=== PATIENT | male | born 1950 | race Caucasian/White ===

== ENCOUNTER 2025-02-19 05:29 | Observation (INO) ==
--- NOTE | 2025-02-02 08:32 | PAT Medication Instructions ---
Medication Instructions Date of Service February 02, 2025 Home Medications Medication Instructions Recorded rosuvastatin 5 mg tablet 5 mg PO DAILY #90 tabs 07/16/24 mecobalamin (vitamin B12) 1,000 mcg chewable tablet (B12 Active) 1,000 mcg PO 2XWK aspirin 81 mg tablet 162 mg PO QAM rosuvastatin 5 mg tablet 5 mg PO DAILY latanoprost 0.005 % eye drops 1 drp ophthalmic (eye) HS acetaminophen 500 mg tablet 500 - 1,000 mg PO BID PRN Pain brinzolamide 1 % eye drops,suspension 1 drp ophthalmic (eye) BID omega-3 fatty acids 1,000 mg capsule 1,000 mg PO QAM ASK your prescriber and surgeon aspirin 81 mg tablet 162 mg PO QAM STOP taking 2 weeks before surgery (or as soon as possible if surgery is within 2 weeks) omega-3 fatty acids 1,000 mg capsule 1,000 mg PO QAM DO NOT take the morning of surgery mecobalamin (vitamin B12) 1,000 mcg chewable tablet (B12 Active) 1,000 mcg PO 2X WK Take morning of surgery With a small sip of water, OTHERWISE NOTHING TO EAT OR DRINK AFTER MIDNIGHT: rosuvastatin 5 mg tablet 5 mg PO DAILY acetaminophen 500 mg tablet 500 - 1,000 mg PO BID PRN Pain (if needed) brinzolamide 1 % eye drops,suspension 1 drp ophthalmic (eye) BID Take evening before surgery latanoprost 0.005 % eye drops 1 drp ophthalmic (eye) HS acetaminophen 500 mg tablet 500 - 1,000 mg PO BID PRN Pain (if needed) brinzolamide 1 % eye drops,suspension 1 drp ophthalmic (eye) BID Other Notes If you have any questions please call us at [phone] or [phone] or [phone] or [phone]
--- NOTE | 2025-02-04 08:34 | Anesthesiology Consultation ---
Date of Service February 04, 2025 Assessment & Plan (1) Encounter for pre-operative examination: - pulmonology office visit 01/15/25 [place]: "...Multiple pulmonary nodules. Mixed groundglass and solid. Largest being groundglass nodule left upper lobe 8 mm. Approximately [id number] smoking history, quit at the age of 33...Given the stability of pulmonary nodules as well as autoimmune and fungal workup negative, I am going to repeat the CAT scan in probably 14-15 months. If the repeat CAT scan does not show any significant change then no further CAT scan of the chest unless patient complains of B symptoms...Exertional shortness of breath --> resolved...Complex sleep apnea...Patient requests that her be not informed regarding the pulmonary nodules..." - Outpatient joint assessment: Patient is currently scheduled for inpatient pathway. If re-evaluated and patient/surgeon requests outpatient pathway, patient is not advised candidate for outpatient joint program. Chart Review Chart Review: Acceptable Risk for Surgery and Patient seen in Pre Admission Testing Teaching & Discussion Pre-Anesthesia Teaching/Discussion Notes: Instructed NPO after midnight before surgery, except medications with 15 cc of water. Medication instructions provided according to the PAT guidelines. History Surgery Operation Date: 02/19/25 10:15 Proposed Procedures p Left Total Hip Arthroplasty - Marcin Akhtar MD Height/Weight Height: 6 ft 5 in Weight: 119.6 kg Allergies Allergy/AdvReac Type Severity Reaction Status Date / Time No Known Allergies Allergy Verified 02/01/25 15:27 Medications Home Medications Medication Instructions Recorded Confirmed Last Taken mecobalamin (vitamin B12) 1,000 1,000 mcg PO 2XWK 06/20/23 02/01/25 Unknown mcg chewable tablet (B12 Active) aspirin 81 mg tablet 162 mg PO QAM 07/16/24 02/01/25 Unknown rosuvastatin 5 mg tablet 5 mg PO DAILY #90 tabs 07/16/24 02/01/25 Unknown latanoprost 0.005 % eye drops 1 drp ophthalmic (eye) HS 10/15/24 02/01/25 Unknown acetaminophen 500 mg tablet 500 - 1,000 mg PO BID PRN Pain 02/01/25 02/01/25 Unknown brinzolamide 1 % eye 1 drp ophthalmic (eye) BID 02/01/25 02/01/25 Unknown drops,suspension omega-3 fatty acids 1,000 mg 1,000 mg PO QAM 02/01/25 02/01/25 Unknown capsule Past Medical History Medical History 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 Osteoarthritis Pancreatic mass per medical record - removed with Shabnam gutierrez in 2023 -> benign findings. Simple renal cyst monitoring Spondylosis Patient denies h/o stroke, seizures, heart attack, heart failure, DM, HTN, blood clots/DVTs or blood transfusions. Exercise / Class Metabolic Activity II 4-5 Yardwork/Stairs/Walk up hill (ambulates with cane, denies chest discomfort or shortness of breath with one flight of stairs) Past Family History Family History Grandfather (Maternal) Lung cancer Grandmother (Maternal) Alzheimer disease Dementia Mother Coronary heart disease Clotting disorder Breast cancer Lung cancer Father Myocardial infarction Other Cancer Colorectal cancer No family history of adverse response to anesthesia Denies family history of Ovarian cancer Prostate cancer Past Surgical History Surgical History (Updated 02/04/25 @ 08:42 by Nancy Johnson PA-C) H/O eye surgery (2008) growth removed from the left eyelid H/O umbilical hernia repair (2019) History of arthroscopy of right shoulder History of ERCP or EUS at [facility] with pancreatic mass biopsy (benign findings) Hx of colonoscopy Past Anesthesia History No Hx of Anesthesia Complications and No Family Hx of Anesthesia Complications History of PONV No Hx of PONV and No Hx of Motion Sickness Social History Smoking Status: Former smoker Do You Dip or Chew Tobacco: No Smoking End Date: 1982 Hx Alcohol Use: Yes Alcohol type: beer alcohol intake frequency: a few times a week Hx Substance Use: No substance use type: does not use Review of Systems Patient denies chest pain, shortness of breath, dyspnea on exertion, reflux, fever, chills, cough, wheezing, or palpitations. Physical Exam Vital Signs Vitals BP 138/85 P 85 TEMP 98.8 SP02 96% on RA RESP Physical Patient resting comfortably in chair in no acute distress, alert and oriented, responding appropriately throughout visit Mildly limited cervical extension range of motion without pain TMD 3.5 finger breadths Mallampati Score 2 Dentition: several implants, denies chipped or loose teeth, caps/crowns, or bridges Lungs: normal respiratory effort. Good air movement, clear throughout to auscultation, no adventitious breath sounds Cardiac: regular rate and rhythm, no murmurs noted Carotid arteries: negative bruit bilat Lab Results Anesthesia Preop Results Results Anesthesia Widget: WBC 6.73 K/ul (4.8-10.8) 02/04/25 Hgb 13.1 g/dl (14.0-18.0) L 02/04/25 Hct 40.1 % (42.0-52.0) L 02/04/25 Plt 193 K/uL (130-400) 02/04/25 Na 140 mmol/L (136-145) 02/04/25 K 4.0 mmol/L (3.5-5.1) 02/04/25 Cl 106 mmol/L (98-107) 02/04/25 CO2 28 mmol/L (21-32) 02/04/25 BUN 15 mg/dl (6-23) 02/04/25 Creat 1.07 mg/dl (0.6-1.4) 02/04/25 Glucose Level 82 mg/dl (70-99(Fasting)) 02/04/25 PT 10.4 Seconds (9.0-12.0) 02/04/25 PTT 29 Seconds (21-31) 02/04/25 INR 1.0 (0.9-1.1) 02/04/25 Blood Type A Positive 02/04/25 Antibody Screen NEGATIVE 02/04/25 Testing Electrocardiogram Date: 07/10/24 NSR, rate 78 bpm Pulmonary Function Test Date: 04/10/24 "PFT 04/10/2024 personally reviewed: No obstructive lung dysfunction, insignificant bronchodilator response, normal TLC, normal DLCO FVC 4.99 L 92%, FEV1 3.82 L 97%, FEV/FVC 77%, RV 118%, TLC 99%, RV/TLC 110%, DLCO 76%" Other Testing Chest CT 12/04/24 1. Interval stable few subcentimeter nodules scattered in both lung [place]. No evidence of suspicious new or enlarging nodules, mass or active infiltrates in either lung. 2. Marked coronary arterial calcification. 3. Moderate spondylodegenerative changes. Advanced osteoarthropathy of bilateral shoulder joints. Brain MRI 07/21/24 1. No acute intracranial findings. 2. Mild atrophy and small vessel disease. 3. Opacified left maxillary sinus. Carotid doppler 07/20/24 < 50% stenosis ICAs bilat Head and neck CTA 07/10/24 No stenosis or dissection within the bilateral common carotid, cervical internal carotid or vertebral arteries. 1. No acute intracranial hemorrhage, evidence of acute territorial infarction, or other acute intracranial disease process. 2. No vascular cutoff is seen. Incidental note is made of a small basilar aneurysm.
[2025-02-19] MEDS: FAMOTIDINE 20 MG TAB PO SCH (05:49)
[2025-02-19] MEDS: CeleBREX 200 MG CAP PO SCH (05:49)
[2025-02-19] MEDS: LR 60ML/HR IV SCH (05:49)
[2025-02-19] MEDS: METOCLOPRAMIDE HCL 10 MG TABLET PO SCH (05:49)
[2025-02-19] MEDS: dexAMETHasone**PF** 10 MG/ML VIAL IV SCH (05:49)
[2025-02-19] MEDS: ACETAMINOPHEN 500 MG TAB PO SCH ×2 (05:49→14:20)
[2025-02-19] MEDS ORDERED: BUPIVACAINE 0.5 % 5 MG/1 ML PF 10ML VIAL ONE (06:04)
[2025-02-19] MEDS: LR 500ML BOLUS, THEN 15ML/HR IV SCH (06:08)
[2025-02-19] MEDS ORDERED: DexMEDEtomidine HCL IV 100 MCG/ML VIAL IV ONE (06:18)
[2025-02-19] MEDS ORDERED: PROPOFOL IV EMULSION 10 MG/ML 20 ML VIAL IV ONE (06:18)
[2025-02-19] MEDS ORDERED: PROPOFOL IV EMULSION 10 MG/ML 100 ML VIAL IV ONE (06:18)
[2025-02-19] MEDS ORDERED: LIDOCAINE 2% 2 ML VIAL/AMP(20MG/ML) INFIL ONE (06:18)
[2025-02-19] MEDS ORDERED: GLYCOPYRROLATE 0.2 MG/ML VIAL ONE (06:18)
[2025-02-19] MEDS ORDERED: MIDAZOLAM HCL 1 MG/ML 2ML VIAL ONE ×2 (06:19)
[2025-02-19] MEDS: TRANEXAMIC ACID 1,000 MG **IV Pre-op IV SCH (06:47)
--- NOTE | 2025-02-19 06:54 | History & Physical Bridge Note ---
Date of Service February 19, 2025 History & Physical Bridge Note I have examined the patient, reviewed the History & Physical and in the interval since the performance of the History & Physical I have noted the following changes of clinical significance: no changes noted
[2025-02-19] MEDS ORDERED: ceFAZolin 330 MG/ML 1 GM VIAL ONE (07:24)
[2025-02-19] MEDS ORDERED: ePHEDrine sulfate 50 MG/5 ML SYR ONE (07:30)
[2025-02-19] MEDS ORDERED: PHENYLEPHRINE 100MCG/ML 5ML SYR ONE (07:31)
[2025-02-19] MEDS ORDERED: PHENYLEPHRINE HCL 10 MG/ML VIAL ONE (07:36)
[2025-02-19] MEDS ORDERED: ESMOLOL HCL INJ 10 MG/ML 10ML VIAL IV ONE (08:10)
[2025-02-19] MEDS ORDERED: ONDANSETRON INJ 2 MG/ML 2 ML VIAL ONE (08:54)
[2025-02-19] MEDS: BUPIVACAINE/EPINEPHRINE 0.5% MPF 1:200,000 30 ML VIAL ONE (09:07)
[2025-02-19] MEDS: NEOMYCIN/POLYMYX/BACITR OINT 15 GM TUBE ONE (09:07)
--- NOTE | 2025-02-19 09:14 | Operative Report ---
PG Post Operative Report Pre & Post Diagnosis Operation Date: 02/19/25 07:00 Pre-Op Diagnosis: Left Hip Osteoarthritis Post-Op Diagnosis: Left Hip Osteoarthritis I identified the patient and participated in the time-out.: Yes Procedure Operation Date: 02/19/25 07:00 Actual Procedures p Left Total Hip Arthroplasty(Left) - Marcin Akhtar MD Surgeon Marcin Akhtar MD Protective Officer None Estimated Blood Loss 200 Findings Consistent with Post-Op Diagnosis Specimens Left femoral head sent for pathology. Anesthesia Type Spinal MAC Complications none Disposition Accompanied Patient To Recovery: No Indications The patient is a 75-year-old gentleman whose had a several year history of increasing left hip pain discomfort stiffness and disability is consequently worse over the past 6 months. He failed conservative measures. X-rays show advanced hip arthritis. Elected proceed with total hip arthroplasty. Description of Procedure Operative implants consists of: 1 Biomet G7 size 56 mm acetabular shell. 2. 6.5 cancellous acetabular screws 1 of 35 mm in length 1 to 30 mm length. 3. [place] hole leather scraper. Leydi #4 highly cross-linked polyethylene liner with a 56 mm outer diameter and a 36 mm inner diameter. 5. DePuy Karaya size 10 KLA femoral stem. 6. +5/36 mm ceramic articular ball. The patient was taken to the op room, identified, placed on the operating table in the supine position. All conductors were appropriately padded. IV antibiotics were provided by the anesthesia team. A spinal anesthetic had been implemented holding area. The patient's right foot was cleaned with alcohol. We placed him triple antibiotic ointment on the tip of his great toe and a dressing was applied as he had some dried cracks on the tip of his toe with some open sores. The patient was then placed in the right lateral decubitus position. An axillary roll was placed. A stool Birkett positioner was used for positioning. The left hip and leg were then prepped and draped in usual sterile fashion. A posterolateral approach to the left hip was then performed through a curvilinear incision centered over the greater trochanter. Sharp dissection was carried through subcutaneous tissue down with the IT band gluteal fascia. The IT band gluteal fascia was sized longitudinally in line with skin incision. The underlying greater bursa was excised. The piriformis and external rotators along with the posterior hip joint capsule were then released from the posterior aspect of the hip as a single layer. The hip was internally rotated and dislocated. Great care was taken throughout the procedure protect the sciatic nerve at all times. A femoral neck osteotomy cut was made with a Final Cut 10 mm above the lesser trochanter. Femoral head was removed and sent for pathology. The femur was retracted anteriorly. The acetabular labrum was excised. The Pulvinal fat was excised. Sequential reaming the acetabular was then performed again with size 47 progressing up to a 55. Reamed a little bit with a 56 reamer and then placed a 56 mm Biomet G7 acetabular shell in about 4 degrees lateral opening and 20 degrees of anteversion. It was fixed with two 6.5 screws. A large anterior osteophyte was removed. Trial liner was placed. Attention drawn the femur. The proximal femur was entered with cookie-cutter followed by canal finder. I then broached begin with a size 8 and progressing up to a 10. We had a really tight fit with a 10 and he had some bow to his femur and I was not sure we could fit the neck size then. We trialed the hip and hip was fully stable with a size 10 with a +5/36 mm articular ball. Leg lengths seemed equal. We elected place these implants. All trial implants were removed. An apex hole leather scraper was placed. A highly cross-linked polyethylene liner was placed. A size 10 KLA femoral stem was impacted in position. A +5/36 mm ceramic articular ball was placed. Hip was located and once again found to be stable. Attention drawn toward closing. Wounds irrigated scope saps pulsatile lavage solution. I did inject locally with 60 cc of half percent Marcaine with epinephrine. The posterior capsule neck rotators were then repaired through drill holes in the posterior trochanter with #2 Tycron suture. The IT band gluteal fascia then closed in 1 PDS suture in a running fashion the subcutaneous tissue then closed with 2 layers of the deep layer and 1 Vicryl suture in the subcutaneous tissues with 2-0 Dexon suture in a buried interrupted fashion. Skin was closed skin lala. Leg was then cleaned and dried and a sterile dressing with Xeroform, 4 fours, ABD pad and foam tape was applied. Patient then transferred to the recovery room in stable condition. Patient tolerated procedure well and there were no complications. I attest to the content of the Intraoperative Record and any orders documented therein. Any exceptions are noted below.
[2025-02-19] MEDS ORDERED: HYDROmorphone INJ 2 MG/ML SYR/VIAL IV PRN (09:43)
[2025-02-19] MEDS ORDERED: ONDANSETRON INJ 2 MG/ML 2 ML VIAL IV PRN ×2 (09:43→11:18)
[2025-02-19] MEDS ORDERED: PROMETHAZINE HCL 6.25 MG in SODIUM CHLORIDE 0.9% 50 ML IV PRN (09:43)
[2025-02-19] MEDS ORDERED: ATROPINE SULFATE 0.1 MG/ML 10ML SYR IV PRN (09:43)
--- NOTE | 2025-02-19 09:46 | XRay Report ---
XR hip 1V LT w pelvis CLINICAL HISTORY: IN PACU - Post Surgical COMPARISON: 01/15/2025 FINDINGS: Left hip prosthesis shows no hardware complication. There is expected soft tissue gas. Ski n lala are present. IMPRESSION: Unremarkable postoperative exam. ACT 112: Negative or not required by law. Electronically signed by: Arnoldo Dominguez M.D. 02/19/2025 9:45 AM
[2025-02-19] MEDS ORDERED: KETAMINE HCL 10MG/ML SYR ONE (09:58)
--- NOTE | 2025-02-19 11:01 | Anesthesiology Progress Note ---
Date of Service February 19, 2025 Anesthesia Post Procedure Vital Signs Vital Signs: Temp Pulse Pulse Resp BP Pulse Ox O2 Del Method 02/19/25 10:35 36.4 C L 95 H 21 113/71 92 Room Air 02/19/25 10:25 91 H 18 107/70 95 Room Air 02/19/25 10:15 85 17 111/67 92 Room Air 02/19/25 10:05 84 19 102/61 93 Room Air 02/19/25 09:55 85 17 84/55 L 93 Room Air 02/19/25 09:45 85 22 94/46 L 95 Oxymask 02/19/25 09:35 83 18 93/55 L 98 Oxymask 02/19/25 09:25 84 18 88/53 L 97 Oxymask 02/19/25 09:15 89 16 90/53 L 98 Oxymask 02/19/25 09:06 36.2 C L 83 19 83/52 L 99 Oxymask 02/19/25 05:40 36.5 C 95 H 20 130/98 95 Room Air O2 Flow Rate 02/19/25 10:35 0 02/19/25 10:25 0 02/19/25 10:15 0 02/19/25 10:05 0 02/19/25 09:55 0 02/19/25 09:45 4 02/19/25 09:35 8 02/19/25 09:25 8 02/19/25 09:15 8 02/19/25 09:06 8 02/19/25 05:40 Pain Intensity Right Shoulder: Pain Intensity: 4 Left Hip: Pain Intensity: 5 Transfer of Care Handoff Completed per policy Notes Mental Status: alert / awake / arousable and participated in evaluation Nausea / Vomiting: adequately controlled Pain: adequately controlled Airway Patency, RR, SpO2: stable & adequate BP & HR: stable & adequate Hydration State: stable & adequate Neuraxial Anesthesia: was administered and sensory block is resolving Anesthetic Complications: no major complications apparent and Pt Satisfied with anesthetic care
[2025-02-19] MEDS ORDERED: NALOXONE HCL 0.4 MG/1 ML VIAL/CARP IV PRN (11:18)
[2025-02-19] MEDS ORDERED: ALUMINUM/MAGNESIUM SUSP 30 ML UDC PO PRN (11:18)
[2025-02-19] MEDS ORDERED: MAGNESIUM HYDROXIDE SUSP 30 ML UDC PO PRN (11:18)
[2025-02-19] MEDS ORDERED: HYDROmorphone INJ 0.5 MG/0.5 ML SYR IV PRN (11:18)
[2025-02-19] MEDS ORDERED: METOCLOPRAMIDE HCL INJ 5 MG/ML 2 ML VIAL IV PRN (11:18)
[2025-02-19] MEDS: KETOROLAC TROMETHAMINE 15 MG/ML VIAL IV SCH (11:41)
[2025-02-19] MEDS: SODIUM CHLORIDE 0.9% 1,000 ML IV SCH (11:45)
[2025-02-19] MEDS ORDERED: ACETAMINOPHEN 500 MG TAB PO SCH (14:00)
[2025-02-19] MEDS: TRANEXAMIC ACID / 0.7% NACL 1,000 MG/100 ML BAG IV SCH (14:20)
[2025-02-19 16:02] VITALS: RESP 16
[2025-02-19] MEDS: ASCORBIC ACID 500 MG TAB PO SCH (18:47)
[2025-02-19] MEDS: SENNA 8.6 MG TAB PO SCH ×2 (21:27)
[2025-02-19] MEDS: ASPIRIN 81 MG ECTAB PO SCH (21:27)
[2025-02-19] MEDS: DOCUSATE SODIUM 100 MG CAP PO SCH (21:27)
[2025-02-19] MEDS: BRINZOLAMIDE (AZOPT) OPS 10 ML BTL OP SCH (21:28)
[2025-02-19] MEDS: LATANOPROST 0.005% OP SOLN 2.5 ML BTL OP SCH (21:28)
[2025-02-20 07:51] LABS: Hematocrit (blood only) 34.0 % (42.0-52.0); Hemoglobin 11.8 g/dl (14.0-18.0); Immature Granulocytes # (auto) 0.05 K/uL (0.01-0.20); Immature Granulocytes % (auto) 0.5 %; Mean Corpuscular Hemoglobin 31.1 pg (25.0-34.0); Mean Corpuscular Volume 89.5 fL (80.0-100.0); Platelet Count 171 K/uL (130-400); RDW Standard Deviation 44.6 fL (36.4-46.3); Red Blood Count 3.80 M/uL (4.70-6.10); White Blood Count 9.89 K/ul (4.8-10.8)
--- NOTE | 2025-02-20 07:56 | Orthopedic Progress Note ---
Date of Service February 20, 2025 Assessment & Plan (1) Status post left hip replacement: Plan: 75-year-old gentleman postop day 1 from a left hip replacement. He seems to be doing pretty well. Pain is controlled. Hips located. He is neurologically intact. Plan: 1. DVT prophylaxis including thigh-high teds, SCDs, aspirin twice a day. 2. PT/OT. Weight-bear as tolerated. Left total hip protocol. 3. Pain control. Doing okay with current pain regimen. 4. Disposition. Plan is to discharge to home with some home health if he does okay in therapy today. Admission and Anticipated Discharge Date Admission Date: February 19, 2025 Subjective 75-year-old gentleman now postop day 1 from a left uncemented hip replacement. He is doing pretty well. Really no pain at all while lying in bed. He did say he got up and walked a little bit yesterday. No chest pain or shortness of breath. Not feeling dizzy or lightheaded. Physical Exam Physical Exam: Physical examination was a pleasant elderly male. He is sitting up in his bed eating breakfast looks comfortable. Examination of left hip reveals a dressing be clean dry and intact. Leg lengths are equal. Hips located. He is neurologically intact. Respiratory: normal respiratory effort, lungs clear to auscultation Cardiovascular: RRR, no murmur, no edema Gastrointestinal (Abdomen): normal bowel sounds, soft, nontender, no hepatosplenomegaly Results & Data Vital Signs (Past 12 Hours) Vital Signs Temp Pulse Resp BP Pulse Ox O2 Del Method 02/20/25 07:23 36.5 C 79 16 158/96 H 97 Room Air 02/20/25 02:37 36.4 C L 85 16 153/72 H 96 Room Air 02/19/25 23:08 36.8 C 85 16 153/83 H 99 CPAP Laboratory Results Hemoglobin is 11.8. Hematocrit is 34. Electrolytes are pending
[2025-02-20] MEDS: MULTIVITAMIN TAB PO SCH (08:24)
[2025-02-20] MEDS: TAMSULOSIN HCL 0.4 MG CAP PO SCH (08:25)
[2025-02-20] MEDS: dexAMETHasone 10 MG in SYRINGE 0 ML IV SCH (08:25)
[2025-02-20] MEDS: ROSUVASTATIN CALCIUM 5 MG TAB PO SCH (08:28)
[2025-02-20] MEDS: OMEGA-3 (PURIFIED FISH OIL) 1 GM CAP PO SCH (08:29)
[2025-02-20 08:46] LABS: Anion Gap 6.0 (3-11); Blood Urea Nitrogen 20.0 mg/dl (6-23); Calcium 8.9 mg/dl (8.6-10.3); Carbon Dioxide 27.0 mmol/L (21-32); Chloride 106.0 mmol/L (98-107); Creatinine Clr Calc Pharmacy 69.5 ml/min; Glucose 104.0 mg/dl (70-99(Fasting)); Potassium 4.1 mmol/L (3.5-5.1); Sodium 139.0 mmol/L (136-145)
[2025-02-20 11:04] VITALS: BP 132/91; PULSE 64; TEMP 98.2; O2SAT 98
[2025-02-23] MEDS ORDERED: CYANOCOBALAMIN (B-12) 500 MCG TABLET PO SCH (09:00)
== END 2025-02-20 12:20 | disposition home health service (06) ==
LOC: 3E 05:29 → ASU 05:29